=== PATIENT | female | born 1970 ===

== ENCOUNTER 2025-02-01 20:31 | Emergency (ER) | payer OTHER, SELFPAY ==
[2025-02-01 21:08] VITALS: BP 123/81; PULSE 79; RESP 18; TEMP 36.6; O2SAT 98; BMI 60.1
--- OUTSIDE RECORDS SUMMARY | 2025-02-01 22:06 | XMS_ITS | Continuity of Care Document ---
Author Organization [facility] Address [address] [place] [address] [place] [address] Phone Care Team Providers Care Sensor Technician Name Role Phone Unavailable Unavailable Unavailable Allergies, Adverse Reactions, Alerts Substance Reaction Status Criticality No Known Allergies Active No Inform ation Medications Medication Instructions Dosage Effective Dates (start - stop) Status Comments amoxicillin 875 mg-potassium clavulanate 125 mg tablet 1 MG two times daily - Active hydrocodone 5 mg-acetaminophen 325 mg tablet 1 MG q6h - Active zolpidem 10 mg tablet 1 MG at bedtime - Active Advance Directives Directive Yes / No Effective Date File Name No Information Encounters Encounter Description Practice Location Reason(s) For Visit Diagnoses Date Provider Providers Copied on Encounter [address] [place] [id number], [place] tel:[phone] [facility] No Information 0 1 No Information [address] [place], [id number], [place] tel:[phone] [facility] No Information 0 Provider Conversion. . [address] [place], [id number], [place] tel:[phone] [facility] No Information 0 Unidentified Provider. [address] [place] [address], [place], [address], . Family History Family Member Type Diagnosis Age At Onset No Information Payers Payer name Insurance type Covered democrat ID Authoriza tion(s) No Information Social History Type Description Quantity Date Captured Comments Sex Female Smoking Status No Information Chief Complaint And Reason For Visit No Information Reason For Referral Reason For Referral No Information History Of Present Illness Encounter Date Complaint History Of Prese nt Illness No Information Functional Status Date Functional Assessmen t No Information Instructions Date Instruction Additional Infor mation No Information Assessments Type Assessment Date No Information Patient Care Teams Name Effective Dates (start - stop) Status Members No Information
--- OUTSIDE RECORDS SUMMARY | 2025-02-01 22:06 | XMS_ITS | Clinical Summary ---
Author Organization [facility] Address [address] [place] [address] Care Team Providers Care Cardroom Worker Name Role Phone Miguel Puckett MD Primary Care Provider Allergies Active Allergy Reactions Criticality Noted Date Comments Latex 04/03/2018 Lisinopril 11/08/2019 angioedema Medications alcohol swabs pads, medicated USE TOPICALLY 2 TIMES DAILY NEEDED TO CHECK BLOOD SUGARS NEEDED 4 Active flash glucose sensor (FREESTYLE LYLA 2 SENSOR [facility] [place] APPLY TO BACK OF ARM EVERY 14 DAYS TO CHECK BLOOD SUGAR 3 Active insulin aspart (NovoLOG Flexpen U-100 Insulin) 100 unit/mL (3 mL) injection pen Inject 40-55 Units into the skin 3 times daily (before meals). Inject 40 units for breakfast and lunch and 55 unuits at dinner 3 Active semaglutide (Ozempic) 1 mg/dose (4 mg/3 mL) injection pen Inject 1 mg into the skin every 7 days. 3 Active albuterol HFA (PROAIR HFA ; PROVENTIL HFA ; VENTOLIN HFA) 90 mcg/actuation inhaler Inhale 2 puffs by mouth every 4 (four) hours if needed for wheezing (coughing). 3 Active gabapentin (NEURONTIN) 300 mg capsule Take 1 capsule (300 mg total) by mouth at bedtime. 3 Active empagliflozin (Jardiance) 25 mg tablet Take 1 tablet (25 mg total) by mouth 1 (one) time each day. 3 Active blood sugar diagnostic (FreeStyle Lite Strips) test strip Test fasting blood sugar once daily as needed 2 Active FREESTYLE LANCETS [facility] [place] Use to test blood sugar daily 1 Active blood glucose control high,low (FreeStyle Control) solution Use to calibrate each new bottle of test strips. E11.65 0 Active fluticasone propionate (FLONASE) 50 mcg/actuation nasal spray 2 sprays in each nostril once per day for 2 weeks. 9 Active aspirin 81 mg EC tablet Take 1 tablet (81 mg total) by mouth 1 (one) time each day. Active Lantus Solostar U-100 Insulin 100 unit/mL (3 mL) injection pen INJECT 20 UNITS INTO THE SKIN AT BEDTIME. INCREASE BY 2 UNITS EVERY 3 DAYS FOR FASTING BLOOD SUGARS > 130. MAX 20 UNITS/DAY 30 mL 5 4 Active Active Problems Problem Noted Date Diagnosed Date COVID-19 virus infection 11/07/2021 PLMD (periodic limb movement disorder) 1 Fibromyalgia 02/24/2015 Ventral hernia 03/21/2014 HTN (hypertension), benign 08/28/2012 Obstructive sleep apnea (adult) (pediatric) 03/2012 Sleep related hypoventilatio n in conditions classified elsewhere 08/25/2012 Vitamin D deficiency 06/15/2012 Hypertriglyceridemia 03/30/2012 Overview (10/07/2024): IMO update Vaginal bleeding problems 03/30/2012 Osteoarthritis of both knees 03/30/2012 Overview (10/07/2024): OA Low back as well Immunizations Name Administration Dates Next Due Influenza Quadravalent, MDCK , 0.5ml, preservative free (Flucelvax) 6mo and older 08/13/2018 Influenza trivalent, 0.5mL, preservative free (Fluarix; FluLaval; Fluzone) ages 6mo and older (Afluria) 3 years and older 10/12/2020,09/05/2015,09/28/2013,08/28 Moderna SARS-CoV-2 COVID-19, mRNA, LNP-S, preservative free 03/27/2021,02/24/2021 Pneumococcal polysaccharide 23 valent (Pneumovax 23) 2yo and older 02/24/2015 Tdap Tetanus diptheria acell ular pertussis (Boostrix; Adacel) 7yo and older 03/30/2012 Surgical History Surgery Date Site/Laterality Comments SECTION PROCEDURE: HISTORICAL ; COMMENT: x1 OTHER SURGICAL HISTORY PROCEDURE: HISTORICAL UNSPECIFIED SURGERY; COMMENT: large cyst on ovary OTHER SURGICAL HISTORY PROCEDURE: HISTORICAL D&C Medical History Medical History Date Comments Essential hypertension, benign D X:Essential hypertension, benign Obstructive sleep apnea (ginna lt) (pediatric) DX:Obstructive sleep apnea ( adult) (pediatric) Unspecified vitamin D deficiency DX:Unspecified vitamin D deficiency Type II or unspecified type diabetes mellitus without mention of complication, uncontrolled DX:Type II or unspecified t ype diabetes mellitus without mention of complication, uncontrolled Arthropathy, unspecified, si te unspecified DX:Arthropathy, unspecified, site unspecified Other specified noninflammat ory disorder of vagina DX:Other specified noninflam matory disorder of vagina Other and unspecified hyperlipidemia DX:Other and unspecified hyperlipidemia Morbid obesity ([facility] V24, [facility] V28) DX:Morbid obesity ([facility]) Family History Medical History Relation Name Comments Breast cancer Aunt 1 p 70 Breast cancer Aunt 2 m 65 Coronary artery disease Father Coronary artery disease Mother Diabetes Mother Other: ckd Mother Arthritis Other 1 mother , grand mother and sister Breast cancer Other 2 m cousin 52 Relation Name Status Comments Aunt 1 p 70 Alive Aunt 2 m 65 Brother Alive kidney problems Father heart problmes Mother heart problems, diabetic, dialysis Other 1 Other 2 m cousin 52 Alive Social History Tobacco Use Types Packs/Day Years Used Date Smoking Tobacco: Never Smokeless Tobacco: Never Alcohol Use Standard Drinks/Week Comments No 0 (1 standard drink = 0.6 oz pur e alcohol) Comments Unknown Sex and Gender Information Value Date Recorded Sex Assigned at Not on file Legal Sex Female 3:19 PM EST Gender Identity Not on file Sexual Orientation Not on file Obstetrics History Last Filed Vital Signs Vital Sign Reading Time Taken Comments Blood Pressure 124/83 05/09/2023 11:20 AM EDT Pulse 77 05/09/2023 11:20 AM EDT Temperature - - Respiratory Rate - - Oxygen Saturation - - Inhaled Oxygen Concentration - - Weight 152 kg (336 lb) 05/09/2023 11:20 AM EDT Height 165.1 cm (5' 5 ) 05/09/2023 11:20 AM EDT Body Mass Index 55.91 05/09/2023 11:20 AM EDT Plan of Treatment Health Maintenance Due Date Last Done Comments Diabetes: Annual Foot Exam 02/26/1978 Diabetes: Annual Retina Eye Exam 02/26/1978 Hepatitis B Vaccines (1 of 3 - 19+ 3-dose series) 02/26/1987 Cervical Cancer Screening: Pap Smear 02/26/1989 Pneumococcal Vaccine: 50+ Years (2 of 2 - PCV) 02/26/2018 02/24/2015 Zoster Vaccines (1 of 2) 02/26/2018 Breast Cancer Screening 05/13/2020 05/13/2018, 05/08 DTaP,Tdap,and Td Vaccines (2 - Td or Tdap) 03/30/2022 03/30/2012 Colorectal Cancer Screening: Colonoscopy 09/28/2022 Depression Screening 09/28/2022 HIV Screening 09/28/2022 Social Influencers of Health Screening 09/28/2022 Diabetes: Annual GFR (Glomerular Filtration Rate) 05/14/2023 05/14/2022 Hypertension/CHF/CAD Annual BMP Blood Test 05/14/2023 05/14/2022 Diabetes: Blood Sugar Control Test (HGBA1C) 07/31/2023 01/29/2023 Diabetes: Annual Urine Albumin-Creatinine Ratio (uACR) 01/30/2024 01/29/2023 COVID-19 Vaccine ( season) 2024 03/27/2021, 02/24/2021 Influenza Vaccine (Season Ended) 2025 10/12/2020, 08/13/2018, 09/05/2015, Additional history exists Cholesterol Screening (Lipid Panel) 05/14/2027 05/14/2022 Pneumococcal Vaccine: Pediatrics (0 to 5 Years) and At-Risk Patients (6 to 64 Years) Aged Out 02/24/2015 No longer eligible based on patient's age to complete this topic Hepatitis C Screening Completed 06/18/2021 HIB Vaccines Aged Out No longer eligi ble based on patient's age to complete this topic HPV Vaccines Aged Out No longer eligi ble based on patient's age to complete this topic Hepatitis A Vaccines Aged Out No long er eligible based on patient's age to complete this topic IPV Vaccines Aged Out No longer eligi ble based on patient's age to complete this topic MMR Vaccines Aged Out No longer eligi ble based on patient's age to complete this topic Meningococcal ACWY Vaccine Aged Out N o longer eligible based on patient's age to complete this topic Meningococcal B Vaccine Aged Out No l onger eligible based on patient's age to complete this topic RSV Immunization Patients Under 20 months Aged Out No longer eligible based on patient's age to complete this topic Varicella Vaccines Aged Out No longer eligible based on patient's age to complete this topic Procedures Procedure Name Priority Date/Time Associated Diagnosis Comments URINE ALBUMIN CREATININE RATIO Routine 01/29/2023 HEMOGLOBIN A1C Routine 01/29/2023 ANNUAL BMP BLOOD TEST Routine 05/14/2022 LIPID PANEL Routine 05/14/2022 HEPATITIS C SCREENING Routine 06/18/2021 SCR MAMMO BI INCL CAD Routine 05/13/2018 10:13 AM EDT Encounter for screening mammogram for malignant neoplasm of breast from Last 3 Months or Most Recently Relevant to Health Maintenance Results * Urine Albumin Creatinine Ratio (01/29/2023) [facility]ologist [facility] Urine Albumin Creatinine Ratio abstracted Historical Provider HEALTH MAINTENANCE Final Result * (ABNORMAL) Hemoglobin A1c (01/29/2023) Pathologist [facility] Hemoglobin A1C 9.0(A) <=6.5 % Blood Venous blood specimen / Unknown Result [facility] Provider LAB BLOOD ORDERABLES Mary l Result * Annual BMP Blood Test (05/14/2022) Pathologist [facility] Annual BMP Blood Test abstracted Historical Provider HEALTH MAINTENANCE Final Result * (ABNORMAL) Lipid panel (05/14/2022) LDL/HDL Ratio 5(A) 0 - 4 Triglycerides 329(A) 0 - 150 mg/dL Cholesterol 197 0 - 200 mg/dL HDL 38(A) >=40 mg/dL LDL Cholesterol 94 0 - 100 mg/dL Blood Venous blood specimen / Unknown Historical Provider MD LAB BLOOD ORDERABLES Mary l Result * Hepatitis C Screening (06/18/2021) Hepatitis C Screening abstracted Historical Provider [facility] Final Result * SCR MAMMO BI INCL CAD (05/13/2018 10:13 AM EDT) Anatomical Region Laterality Modality Radiographic Annia ging 05/08/2017 9:51 AM EDT Narrative 05/13/2018 12:32 PM EDT This is a summary report. The complete report is available in the patient's medical record. If you cannot access the medical record, please contact the sending organization for a detailed fax or copy. Full field digital screening mammography, reviewed with CAD and compared to previous. ??The breasts are composed of fatty and fibroglandular tissue. ??No suspicious mass, architectural distortion or suspicious calcifications are identified. IMPRESSION: : No mammographic evidence of malignancy. BIRADS 1-Negative; N. 5 year breast cancer risk assessment 1.1 % Lifetime breast cancer risk assessment 8.7 % Breast cancer risk category Low (<15%) Procedure Note Candy Gu MD - 10/08/2022 This is a summary report. The complete report is available in thepatient's medical record. If you cannot access the medical record, pleasecontact the sending organization for a detailed fax or copy. Full field digital screening mammography, reviewed with CAD and comparedto previous. The breasts are composed of fatty and fibroglandular tissue.No suspicious mass, architectural distortion or suspicious calcificationsare identified. IMPRESSION: : No mammographic evidence of malignancy. BIRADS 1-Negative; N. 5 year breast cancer risk assessment 1.1 % Lifetime breast cancer risk assessment 8.7 % Breast cancer risk category Low (<15%) us Franky Urias MD IMG XR PROCEDURES Final Resul t from Last 3 Months or Most Recently Relevant to Health Maintenance Care Teams Cardroom Worker Relationship Specialty Start Date End Date Miguel Puckett MD [address] [place] [address] PCP - General Internal Medicine 04/25/22
[2025-02-01 22:39] LABS: Glucose, Whole Blood 150 mg/dL (60-115)
--- NOTE | 2025-02-01 22:49 | ED.EXTPRO ---
HPI - Extremity Problem General Chief complaint: Extremity Problem Stated complaint: arthritis really bad left arm Time Seen by Provider: 02/01/25 22:04 Source: patient Mode of arrival: ambulatory Limitations: no limitations History of Present Illness ED Provider: HPI Narrative: Patient is morbidly obese with history of rheumatoid arthritis not on any edema already medication takes prednisone p.r.n. as needed for the flare-up last flare was while about 4 months ago does not have any campus police officer comes here for similar flare-up of the left hand and left elbow for last 3 days no recent fall no fever no chills no rash Related Data Previous Rx's ?Medication ?Instructions ?Recorded prednisone 20 mg tablet 60 mg (3 x 20 mg) PO DAILY #15 tabs 02/01/25 Allergies Allergy/AdvReac Type Severity Reaction Status Date / Time lisinopril [LISINOPRIL] Allergy Unknown SWELLING Unverified 12/15/24 12:50 losartan Allergy Unknown Unknown Verified 02/01/25 21:13 Review of Systems Review of Systems: Yes all other systems are reviewed and are negative [facility] Social History Social History Advance Directives: No Advance Directives Information Provided: Yes Do you have a plan to hurt others: No Plan Physical Exam Vital Signs: Vital Signs: Last Vital Signs Temp 97.9 F 02/01/25 21:08 Pulse 79 02/01/25 21:08 Resp 18 02/01/25 21:08 BP 123/81 02/01/25 21:08 Pulse Ox 98 02/01/25 21:08 O2 Del Method Room Air 02/01/25 21:08 BMI result Body Mass Index 60.1 Appearance: Alert. Oriented X3. No acute distress. Eyes: No pallor or icterus ENT: Pharynx normal. Oral Mucosa moist Neck: Normal inspection. Neck supple. CVS: Normal heart rate and rhythm. Pulses normal. Respiratory: No respiratory distress. Equal air entry bilateral, no wheezing/rales/rhonchi Abdomen: Soft and nontender. Bowel sounds are present, no mass palpable, no CVA tenderness Skin: Skin warm and dry. Normal skin color. Normal skin turgor. Extremities: No lower extremity edema. No calf tenderness left hand tenderness and swelling of the IP joints in the left elbow no signs of infection Neuro: Oriented X 3. No motor deficit. No sensory deficit.No cerebellar signs , cranial nerves II-XII intact Medical Decision Making Medical Decision Making [facility] Narrative: Patient's rheumatoid arthritis flare-up will prescribe prednisone advised to follow up with PCP/rheumatology for DMRD and further workup medications Lab Data [facility] Lab Attestation statement: I reviewed the patient's lab results. Labs: Lab Results 02/01/25 Range/Units 22:33 POC Glucose 150 H (60-115) mg/dL Discharge Plan Discharge Clinical Impression: Rheumatoid arthritis flare Patient Disposition: Home, Self-Care Instructions: Rheumatoid Arthritis (ED) Additional Instructions: Take prednisone as prescribed Follow up with campus police officer/PCP Prescriptions: New prednisone 20 mg tablet 60 mg PO DAILY Qty: 15 0RF Referrals: Fredi Tobar MD [Physician] - 2 weeks Reji Ruby MD [Physician] - 2 weeks Print Language: Thai
--- NOTE | 2025-02-01 22:52 | PC.NURSE ---
Provider to bedside for primary eval.
[2025-02-01] MEDS: predniSONE 20 MG TABLET 60 MG PO (23:34)
[2025-02-01 23:44] VITALS: BP 123/81; PULSE 79; RESP 18; TEMP 36.6; O2SAT 98
== END 2025-02-01 23:44 | disposition home or self-care (01) ==
PROVIDERS: Emergency Provider Internal Medicine; PCP Internal Medicine
DX: M06.9 Rheumatoid arthritis, unspecified (principal)
CPT/HCPCS: 82947; 99282; 99283